=== PATIENT | female | born 1985 | race Two or more races ===

== ENCOUNTER 2019-01-15 11:20 | Outpatient (CLI) | payer OTHER | END 2019-01-15 11:34 | disposition home or self-care (01) | LOC: RAD 11:20 | DX: M25.511 Pain in right shoulder (principal); M75.101 Unspecified rotator cuff tear or rupture of right shoulder, not specified as traumatic ==

== ENCOUNTER 2019-02-10 14:54 | Outpatient (CLI) | payer OTHER | END 2019-02-10 14:58 | disposition home or self-care (01) | LOC: RAD 14:54 | DX: M54.2 Cervicalgia (principal); M54.5 Low back pain; M25.571 Pain in right ankle and joints of right foot ==

== ENCOUNTER 2019-04-29 13:32 | Outpatient (CLI) | payer OTHER | END 2019-04-29 14:16 | disposition home or self-care (01) | LOC: SONOGRAMA 13:32 | DX: N60.19 Diffuse cystic mastopathy of unspecified breast (principal); N64.4 Mastodynia ==